=== PATIENT | male | born 1940 | race Caucasian/White ===

== ENCOUNTER 2016-09-05 06:10 | Emergency (ER) | payer MEDICARE ==
[~2016-09-05] VITALS: Ht 175.3 cm; Wt 76.5 kg
[~2016-09-05 06:10] MED LIST: ACET325T14 PO; AMLO5TAB2 PO; ATEN25TA PO; BACL-19; DOXY100T PO; FERR325T20 PO; FLUO20CA19 PO; FOLI-17 PO; IPRA4AER INH; OLAN10TA3 PO; OLAN20TA10 PO; OMEP-110 PO; OXYC1TAB PO; PANT40TA5 PO; PRED5TAB PO; TOPI100P PO; VITAMIN B1
[2016-09-05] MEDS ORDERED: FERR324T5 PO (06:38)
[2016-09-05] MEDS ORDERED: OMEP40CA6 PO (06:38)
[2016-09-05] MEDS ORDERED: TOPI100T94 PO (06:38)
[2016-09-05] MEDS ORDERED: FOLI-17 PO (06:38)
[2016-09-05] MEDS ORDERED: OLAN10TA9 PO (06:38)
[2016-09-05] MEDS ORDERED: TAMS0.4C2 PO (06:38)
[2016-09-05] MEDS ORDERED: NALT50TA PO (06:38)
[2016-09-05] MEDS ORDERED: FLUO40CA2 PO (06:38)
[2016-09-05] MEDS ORDERED: MAGN400T7 PO (06:38)
[2016-09-05] MEDS ORDERED: TIMO5DRO5 EACHEYE (06:38)
[2016-09-05] MEDS ORDERED: LIDOCAINE 1%, 20ML SQ ONE (07:00)
[2016-09-05] MEDS ORDERED: DIPHTHERIA-TETANUS ADULT 0.5ML IM-VACC ONE (07:00)
[2016-09-05] MEDS ORDERED: DIPH,PERTUSS(ACELL),TET VAC/PF 0.5 ML IM-VACC ONE ×2 (07:00→07:20)
[2016-09-05 07:07] LABS: BLOOD UREA NITROGEN 11 mg/dL (7-18)
[2016-09-05] MEDS ORDERED: LIDOCAINE 1%, 20ML ONE (07:24)
[2016-09-05 09:05] VITALS: BP 138/74
== END 2016-09-05 10:26 | disposition left against medical advice (07) ==
LOC: ED 08:32
DX: S01.81XA Laceration without foreign body of other part of head, initial encounter (principal); J44.9 Chronic obstructive pulmonary disease, unspecified; I10 Essential (primary) hypertension; F10.20 Alcohol dependence, uncomplicated; Z88.8 Allergy status to other drugs, medicaments and biological substances; W19.XXXA Unspecified fall, initial encounter; Y93.89 Activity, other specified; Y92.009 Unspecified place in unspecified non-institutional (private) residence as the place of occurrence of the external cause; Y99.9 Unspecified external cause status
CPT/HCPCS: 13131; 36415; 70450; 72125; 80048; 80307; 82040; 85025; 90471; 90715; 99285; J3490

== ENCOUNTER 2016-10-15 08:05 | Emergency (ER) | payer MEDICARE ==
[~2016-10-15] VITALS: Ht 175.3 cm; Wt 78.0 kg
[~2016-10-15 08:05] MED LIST changes: +FERR324T5 PO; +FLUO40CA2 PO; +MAGN400T7 PO; +NALT50TA PO; +OLAN10TA9 PO; +OMEP40CA6 PO; +TAMS0.4C2 PO; +TIMO5DRO5 EACHEYE; +TOPI100T94 PO
[2016-10-15 08:25] VITALS: BP 140/88
== END 2016-10-15 09:52 | disposition home or self-care (01) ==
LOC: ED 09:30
DX: F10.129 Alcohol abuse with intoxication, unspecified (principal); I10 Essential (primary) hypertension; J44.9 Chronic obstructive pulmonary disease, unspecified; G40.909 Epilepsy, unspecified, not intractable, without status epilepticus; K21.9 Gastro-esophageal reflux disease without esophagitis
CPT/HCPCS: 99283

== ENCOUNTER 2016-10-23 23:52 | Emergency (ER) | payer MEDICARE ==
[~2016-10-23] VITALS: Ht 172.7 cm; Wt 75.0 kg
[2016-10-24 05:49] VITALS: BP 105/69
== END 2016-10-24 05:52 | disposition home or self-care (01) ==
LOC: ED 23:59
DX: F10.120 Alcohol abuse with intoxication, uncomplicated (principal); I11.9 Hypertensive heart disease without heart failure; J44.9 Chronic obstructive pulmonary disease, unspecified; G40.909 Epilepsy, unspecified, not intractable, without status epilepticus; K21.9 Gastro-esophageal reflux disease without esophagitis
CPT/HCPCS: 99283

== ENCOUNTER 2016-11-27 03:49 | Emergency (ER) | payer MEDICARE ==
[~2016-11-27] VITALS: Ht 175.3 cm; Wt 73.0 kg
[2016-11-27 03:55] VITALS: BP 128/80
[2016-11-27 04:12] LABS: PATH.CAST-FLAG NOT PRESENT; SPERM-FLAG NOT PRESENT; SRC-FLAG NOT PRESENT; XTAL-FLAG NOT PRESENT; YLC-FLAG NOT PRESENT
== END 2016-11-27 05:00 | disposition home or self-care (01) ==
LOC: ED 04:30
DX: R30.0 Dysuria (principal); R39.15 Urgency of urination; J44.9 Chronic obstructive pulmonary disease, unspecified; I10 Essential (primary) hypertension
CPT/HCPCS: 81001; 99283

== ENCOUNTER 2016-12-07 09:11 | Inpatient (IN) | payer MEDICARE, OTHER ==
[~2016-12-07] VITALS: Ht 175.3 cm; Wt 72.1 kg
[2016-12-07 09:52] LABS: HEMATOCRIT 37.2 % (39.2-51.8); HEMOGLOBIN 12.3 g/dL (13.7-18.0); WHITE BLOOD COUNT 7.6 x10^3/uL (3.4-10)
[2016-12-07 09:59] LABS: BLOOD UREA NITROGEN 18 mg/dL (7-18)
[2016-12-07] MEDS ORDERED: ONDANSETRON 2MG/ML, 2ML IVPush ONE ×3 (12:30→15:00)
[2016-12-07] MEDS ORDERED: HYDROmorphone 1 MG/ML, 1ML IVPush PRN ×2 (12:30→14:30)
[2016-12-07] MEDS ORDERED: SODIUM CHLORIDE FLUSH 10ML SYR IVF ONE (12:30)
[2016-12-07] MEDS ORDERED: SODIUM CHLORIDE 0.9% 1,000 ML IV ONE (12:39)
[2016-12-07] MEDS ORDERED: SODIUM CHLORIDE FLUSH 10ML SYR IVF PRN (13:00)
[2016-12-07] MEDS ORDERED: SODIUM CHLORIDE 0.9% 1,000 ML IV SCH (13:37)
[2016-12-07] MEDS ORDERED: ONDANSETRON 2MG/ML, 2ML IVPush PRN (14:00)
[2016-12-07] MEDS ORDERED: LORazepam 2 MG/ML, 1ML IVPush PRN (14:00)
[2016-12-07] MEDS ORDERED: ACETAMINOPHEN 325 MG TABLET PO PRN (14:00)
[2016-12-07] MEDS ORDERED: hydrALAzine 20 MG/ML, 1ML IVPush PRN (14:00)
[2016-12-07] MEDS ORDERED: DOCUSATE 100 MG CAPSULE PO PRN (14:00)
[2016-12-07] MEDS ORDERED: POLYETHYLENE GLYCOL 17 GM PACKET PO PRN (14:00)
[2016-12-07] MEDS ORDERED: LORazepam 2 MG/ML, 1ML IV PRN ×3 (14:00)
[2016-12-07] MEDS ORDERED: HYDROmorphone 1 MG/ML, 1ML ONE ×2 (14:31→15:54)
[2016-12-07 14:34] LABS: ASPARTATE AMINO TRANSFERASE 22 U/L (15-37)
[2016-12-07 15:01] LABS: TOTAL IRON BINDING CAPACITY 216 mcg/dL (250-450)
[2016-12-07] MEDS: HYDROmorphone 1 MG/ML, 1ML IVPush PRN ×2 (15:11→16:07)
[2016-12-07] MEDS: HYDROcodone/APAP 5/325 TABLET PO PRN (16:45)
[2016-12-07] MEDS: LORazepam 2 MG/ML, 1ML IV PRN ×2 (16:46→19:26)
[2016-12-07 16:55] VITALS: BP 179/99
[2016-12-07 17:56] VITALS: BP 141/97
[2016-12-07 18:59] VITALS: BP 169/97
[2016-12-07] MEDS: TAMSULOSIN 0.4 MG CAP.ER.24H PO SCH (21:21)
[2016-12-07] MEDS: FERROUS SULFATE 325 MG TABLET PO SCH (21:21)
[2016-12-08 01:31] VITALS: BP 143/92
[2016-12-08] MEDS: MORPHINE SULFATE 4 MG/ML, 1ML IVPush PRN ×2 (01:57→10:38)
[2016-12-08 04:15] LABS: HEMOGLOBIN 12.5 g/dL (13.7-18.0); WHITE BLOOD COUNT 8.7 x10^3/uL (3.4-10)
[2016-12-08 04:29] LABS: BLOOD UREA NITROGEN 18 mg/dL (7-18)
[2016-12-08 04:33] LABS: ASPARTATE AMINO TRANSFERASE 19 U/L (15-37)
[2016-12-08 07:01] VITALS: BP 177/92
[2016-12-08] MEDS: OMEPRAZOLE 20 MG CAPSULE.DR PO SCH (07:30)
[2016-12-08] MEDS: FERROUS SULFATE 325 MG TABLET PO SCH ×2 (08:01→21:38)
[2016-12-08] MEDS: FOLIC ACID 1 MG TABLET PO SCH (08:01)
[2016-12-08] MEDS: MAGNESIUM OXIDE 400 MG TABLET PO SCH (08:01)
[2016-12-08] MEDS: TOPIRAMATE 100 MG TABLET PO SCH (08:02)
[2016-12-08] MEDS: FLUOXETINE 20 MG CAPSULE PO SCH (08:02)
[2016-12-08] MEDS: OLANZAPINE 10 MG TABLET PO SCH (08:02)
[2016-12-08] MEDS ORDERED: POTASSIUM CHLORIDE 20 MEQ, MAGNESIUM SULFATE 1 GM, THIAMINE 100 MG, FOLIC ACID 1 MG, MV... IV SCH (08:30)
[2016-12-08] MEDS ORDERED: POTASSIUM CHLORIDE 20 MEQ, MAGNESIUM SULFATE 1 GM, FOLIC ACID 1 MG, THIAMINE 100 MG, MV... IV ONE (09:00)
[2016-12-08] MEDS: TIMOLOL OPHTH 0.5%, 5ML EACHEYE SCH (10:38)
[2016-12-08] MEDS: LORazepam 2 MG/ML, 1ML IV PRN (11:01)
[2016-12-08 12:05] VITALS: BP 151/88
[2016-12-08] MEDS ORDERED: FENTANYL PF 100 MCG/2ML ONE (13:22)
[2016-12-08] MEDS ORDERED: MIDAZOLAM 1 MG/ML, 5ML ONE (13:22)
[2016-12-08] MEDS: HYDROcodone/APAP 5/325 TABLET PO PRN ×2 (17:43→21:38)
[2016-12-08 19:40] VITALS: BP 104/67
[2016-12-08] MEDS: TAMSULOSIN 0.4 MG CAP.ER.24H PO SCH (21:37)
[2016-12-09 02:26] VITALS: BP 119/71
[2016-12-09] MEDS: HYDROcodone/APAP 5/325 TABLET PO PRN ×2 (04:08→13:30)
[2016-12-09 05:20] LABS: HEMATOCRIT 37.1 % (39.2-51.8); HEMOGLOBIN 12.3 g/dL (13.7-18.0); WHITE BLOOD COUNT 9.9 x10^3/uL (3.4-10)
[2016-12-09 05:41] LABS: ASPARTATE AMINO TRANSFERASE 16 U/L (15-37); BLOOD UREA NITROGEN 17 mg/dL (7-18)
[2016-12-09] MEDS: OMEPRAZOLE 20 MG CAPSULE.DR PO SCH (07:30)
[2016-12-09 07:48] VITALS: BP 153/86
[2016-12-09] MEDS: FOLIC ACID 1 MG TABLET PO SCH (09:00)
[2016-12-09] MEDS: FERROUS SULFATE 325 MG TABLET PO SCH ×2 (09:00→21:54)
[2016-12-09] MEDS: MAGNESIUM OXIDE 400 MG TABLET PO SCH (09:00)
[2016-12-09] MEDS ORDERED: MIDAZOLAM 1 MG/ML, 5ML ONE ×2 (10:41)
[2016-12-09] MEDS ORDERED: FENTANYL PF 100 MCG/2ML ONE (10:41)
[2016-12-09] MEDS ORDERED: NALOXONE 1 MG/ML, 2ML ONE (10:42)
[2016-12-09] MEDS ORDERED: FLUMAZENIL 0.1 MG/1 ML, 5ML ONE (10:42)
[2016-12-09] MEDS: TIMOLOL OPHTH 0.5%, 5ML EACHEYE SCH (13:27)
[2016-12-09] MEDS: POTASSIUM CHLORIDE 20 MEQ, MAGNESIUM SULFATE 1 GM, FOLIC ACID 1 MG, THIAMINE 100 MG, MV... IV SCH (13:27)
[2016-12-09] MEDS: TOPIRAMATE 100 MG TABLET PO SCH (13:27)
[2016-12-09] MEDS: FLUOXETINE 20 MG CAPSULE PO SCH (13:27)
[2016-12-09] MEDS: POTASSIUM CHLORIDE 20 MEQ TAB.ER.PRT PO SCH ×2 (13:27→18:15)
[2016-12-09] MEDS: OLANZAPINE 10 MG TABLET PO SCH (13:28)
[2016-12-09 15:27] VITALS: BP 129/81
[2016-12-09] MEDS: MORPHINE SULFATE 4 MG/ML, 1ML IVPush PRN ×2 (18:15→21:54)
[2016-12-09 19:46] VITALS: BP 102/64
[2016-12-09] MEDS: TAMSULOSIN 0.4 MG CAP.ER.24H PO SCH (21:54)
[2016-12-10 01:54] VITALS: BP 120/75
[2016-12-10] MEDS: HYDROcodone/APAP 5/325 TABLET PO PRN ×4 (04:20→22:15)
[2016-12-10 05:16] LABS: HEMATOCRIT 36.6 % (39.2-51.8); HEMOGLOBIN 12.2 g/dL (13.7-18.0); WHITE BLOOD COUNT 9.8 x10^3/uL (3.4-10)
[2016-12-10 05:36] LABS: ASPARTATE AMINO TRANSFERASE 20 U/L (15-37); BLOOD UREA NITROGEN 17 mg/dL (7-18)
[2016-12-10] MEDS: OMEPRAZOLE 20 MG CAPSULE.DR PO SCH (07:51)
[2016-12-10] MEDS: POTASSIUM CHLORIDE 20 MEQ TAB.ER.PRT PO SCH (07:51)
[2016-12-10 08:00] VITALS: BP 131/82
[2016-12-10] MEDS: TIMOLOL OPHTH 0.5%, 5ML EACHEYE SCH (09:39)
[2016-12-10] MEDS: FERROUS SULFATE 325 MG TABLET PO SCH ×2 (09:39→20:16)
[2016-12-10] MEDS: FLUOXETINE 20 MG CAPSULE PO SCH (09:40)
[2016-12-10] MEDS: FOLIC ACID 1 MG TABLET PO SCH (09:40)
[2016-12-10] MEDS: MAGNESIUM OXIDE 400 MG TABLET PO SCH (09:40)
[2016-12-10] MEDS: TOPIRAMATE 100 MG TABLET PO SCH (09:40)
[2016-12-10] MEDS: OLANZAPINE 10 MG TABLET PO SCH (09:41)
[2016-12-10] MEDS: POTASSIUM CHLORIDE 20 MEQ, MAGNESIUM SULFATE 1 GM, FOLIC ACID 1 MG, THIAMINE 100 MG, MV... IV SCH (10:15)
[2016-12-10 14:00] VITALS: BP 105/58
[2016-12-10] MEDS ORDERED: ENOXAPARIN 30 MG/0.3 ML SQ SCH (14:00)
[2016-12-10] MEDS ORDERED: HYDROcodone/APAP 5/325 TABLET PO PRN (18:00)
[2016-12-10 19:17] VITALS: BP 106/67
[2016-12-10] MEDS: TAMSULOSIN 0.4 MG CAP.ER.24H PO SCH (20:16)
[2016-12-11 01:47] VITALS: BP 117/75
[2016-12-11] MEDS: HYDROcodone/APAP 5/325 TABLET PO PRN ×3 (02:04→20:22)
[2016-12-11 08:15] VITALS: BP 148/94
[2016-12-11] MEDS: POTASSIUM CHLORIDE 20 MEQ, MAGNESIUM SULFATE 1 GM, FOLIC ACID 1 MG, THIAMINE 100 MG, MV... IV SCH (09:00)
[2016-12-11] MEDS: FLUOXETINE 20 MG CAPSULE PO SCH (10:21)
[2016-12-11] MEDS: FERROUS SULFATE 325 MG TABLET PO SCH ×2 (10:21→20:22)
[2016-12-11] MEDS: FOLIC ACID 1 MG TABLET PO SCH (10:21)
[2016-12-11] MEDS: TIMOLOL OPHTH 0.5%, 5ML EACHEYE SCH (10:21)
[2016-12-11] MEDS: OMEPRAZOLE 20 MG CAPSULE.DR PO SCH (10:21)
[2016-12-11] MEDS: MAGNESIUM OXIDE 400 MG TABLET PO SCH (10:22)
[2016-12-11] MEDS: TOPIRAMATE 100 MG TABLET PO SCH (10:22)
[2016-12-11] MEDS: OLANZAPINE 10 MG TABLET PO SCH (13:07)
[2016-12-11 13:41] VITALS: BP 120/76
[2016-12-11] MEDS ORDERED: ENOXAPARIN 40 MG/0.4 ML SQ SCH (14:00)
[2016-12-11 19:54] VITALS: BP 113/69
[2016-12-11] MEDS: TAMSULOSIN 0.4 MG CAP.ER.24H PO SCH (20:22)
[2016-12-12 00:52] VITALS: BP 129/76
[2016-12-12] MEDS: HYDROcodone/APAP 5/325 TABLET PO PRN ×3 (01:59→21:33)
[2016-12-12 07:44] VITALS: BP 143/87
[2016-12-12] MEDS: OMEPRAZOLE 20 MG CAPSULE.DR PO SCH (07:51)
[2016-12-12] MEDS: OLANZAPINE 10 MG TABLET PO SCH (09:01)
[2016-12-12] MEDS: FERROUS SULFATE 325 MG TABLET PO SCH ×2 (09:01→21:34)
[2016-12-12] MEDS: FLUOXETINE 20 MG CAPSULE PO SCH (09:01)
[2016-12-12] MEDS: FOLIC ACID 1 MG TABLET PO SCH (09:01)
[2016-12-12] MEDS: MAGNESIUM OXIDE 400 MG TABLET PO SCH (09:01)
[2016-12-12] MEDS: TOPIRAMATE 100 MG TABLET PO SCH (09:01)
[2016-12-12] MEDS: TIMOLOL OPHTH 0.5%, 5ML EACHEYE SCH (09:02)
[2016-12-12 14:15] VITALS: BP 110/65
[2016-12-12] MEDS: ENOXAPARIN 40 MG/0.4 ML SQ SCH (15:47)
[2016-12-12 19:45] VITALS: BP 120/71
[2016-12-12] MEDS ORDERED: BICALUTAMIDE 50 MG TABLET PO SCH (21:00)
[2016-12-12] MEDS: TAMSULOSIN 0.4 MG CAP.ER.24H PO SCH (21:34)
[2016-12-13 01:23] VITALS: BP 136/86
[2016-12-13] MEDS: HYDROcodone/APAP 5/325 TABLET PO PRN (05:48)
[2016-12-13 07:40] VITALS: BP 148/77
[2016-12-13] MEDS: OMEPRAZOLE 20 MG CAPSULE.DR PO SCH (08:22)
[2016-12-13] MEDS ORDERED: BICALUTAMIDE 50 MG TABLET PO SCH (09:00)
[2016-12-13] MEDS: FLUOXETINE 20 MG CAPSULE PO SCH (09:05)
[2016-12-13] MEDS: TOPIRAMATE 100 MG TABLET PO SCH (09:05)
[2016-12-13] MEDS: FOLIC ACID 1 MG TABLET PO SCH (09:05)
[2016-12-13] MEDS: MAGNESIUM OXIDE 400 MG TABLET PO SCH (09:05)
[2016-12-13] MEDS: FERROUS SULFATE 325 MG TABLET PO SCH (09:06)
[2016-12-13] MEDS: OLANZAPINE 10 MG TABLET PO SCH (09:06)
[2016-12-13] MEDS: TIMOLOL OPHTH 0.5%, 5ML EACHEYE SCH (09:07)
[2016-12-13] MEDS ORDERED: HYDR-3240 PO (11:41)
[2016-12-13] MEDS ORDERED: BICA50TA PO (11:41)
[2016-12-13 13:05] VITALS: BP 129/74
[2016-12-13] MEDS: ENOXAPARIN 40 MG/0.4 ML SQ SCH (14:09)
== END 2016-12-13 18:00 | DRG 823 ==
LOC: ED 10:09 → EDIP 12:39 → 3NW 13:15 → 3NE 12-11 07:03 → 3NW 12-11 07:03
PROVIDERS: ADMIT Internal Medicine; ATTEND Internal Medicine
PROC: 0T7D8ZZ Dilation of Urethra, Via Natural or Artificial Opening Endoscopic (ICD-10-PCS; 2016-12-07)
PROC: 0T9B80Z Drainage of Bladder with Drainage Device, Via Natural or Artificial Opening Endoscopic (ICD-10-PCS; 2016-12-07)
PROC: 0DJ08ZZ Inspection of Upper Intestinal Tract, Via Natural or Artificial Opening Endoscopic (ICD-10-PCS; 2016-12-08)
PROC: 07BD3ZX Excision of Aortic Lymphatic, Percutaneous Approach, Diagnostic (ICD-10-PCS; principal; 2016-12-09)
DX: C77.2 Secondary and unspecified malignant neoplasm of intra-abdominal lymph nodes (principal); N17.0 Acute kidney failure with tubular necrosis; E44.0 Moderate protein-calorie malnutrition; C77.5 Secondary and unspecified malignant neoplasm of intrapelvic lymph nodes; C79.51 Secondary malignant neoplasm of bone; N13.30 Unspecified hydronephrosis; I13.10 Hypertensive heart and chronic kidney disease without heart failure, with stage 1 through stage 4 chronic kidney disease, or unspecified chronic kidney disease; F31.30 Bipolar disorder, current episode depressed, mild or moderate severity, unspecified; C61 Malignant neoplasm of prostate; R13.10 Dysphagia, unspecified; J44.9 Chronic obstructive pulmonary disease, unspecified; F20.9 Schizophrenia, unspecified; N32.0 Bladder-neck obstruction; D50.9 Iron deficiency anemia, unspecified; Z68.23 Body mass index [BMI] 23.0-23.9, adult; D63.8 Anemia in other chronic diseases classified elsewhere; E87.6 Hypokalemia; F10.10 Alcohol abuse, uncomplicated; G40.909 Epilepsy, unspecified, not intractable, without status epilepticus; K21.9 Gastro-esophageal reflux disease without esophagitis; K59.00 Constipation, unspecified; N18.9 Chronic kidney disease, unspecified; N40.0 Benign prostatic hyperplasia without lower urinary tract symptoms; Z96.642 Presence of left artificial hip joint; K44.9 Diaphragmatic hernia without obstruction or gangrene; Z66 Do not resuscitate; Z80.1 Family history of malignant neoplasm of trachea, bronchus and lung; Z82.49 Family history of ischemic heart disease and other diseases of the circulatory system; Z87.440 Personal history of urinary (tract) infections; Z87.891 Personal history of nicotine dependence; Z90.79 Acquired absence of other genital organ(s); Z88.8 Allergy status to other drugs, medicaments and biological substances; Z88.5 Allergy status to narcotic agent; K22.70 Barrett's esophagus without dysplasia
CPT/HCPCS: 36415; 49180; 71250; 74022; 74176; 76770; 77012; 78306; 80048; 80053; 80076; 81003; 82040; 82607; 82746; 83540; 83550; 83735; 84100; 84153; 84443; 85025; 85610; 87324; 88305; 88313; 88341; 88342; 96361; 96374; 96375; 99152; 99153; 99156; 99157; J1170; J1650; J2250; J3010; J3411; J3475; J3480; A9503; C9898; G0461; J0360; J2060; J2310; J7030; J7121

== ENCOUNTER 2017-01-09 17:09 | Emergency (ER) | payer MEDICARE, OTHER ==
[~2017-01-09] VITALS: Ht 175.3 cm; Wt 68.5 kg
[~2017-01-09 17:09] MED LIST changes: +BICA50TA PO; +FERR325T18 PO; -FERR325T20 PO; +HYDR-3240 PO; +TOPI100T8 PO; -TOPI100T94 PO
[2017-01-09 19:42] VITALS: BP 158/90
== END 2017-01-09 19:44 | disposition home or self-care (01) ==
LOC: ED 18:25
DX: Z46.6 Encounter for fitting and adjustment of urinary device (principal); I11.9 Hypertensive heart disease without heart failure; J44.9 Chronic obstructive pulmonary disease, unspecified; F10.20 Alcohol dependence, uncomplicated; Z85.46 Personal history of malignant neoplasm of prostate; Z88.8 Allergy status to other drugs, medicaments and biological substances; Z87.891 Personal history of nicotine dependence
CPT/HCPCS: 51702; 99284

== ENCOUNTER 2017-01-18 09:22 | Emergency (ER) | payer MEDICARE ==
[~2017-01-18] VITALS: Ht 175.3 cm; Wt 75.0 kg
[2017-01-18 09:59] LABS: HEMATOCRIT 33.6 % (39.2-51.8); HEMOGLOBIN 11.4 g/dL (13.7-18.0); WHITE BLOOD COUNT 7.4 x10^3/uL (3.4-10)
[2017-01-18 10:11] LABS: BLOOD UREA NITROGEN 7 mg/dL (7-18)
[2017-01-18] MEDS ORDERED: OMNIPAQUE 350 MG/ML, 100ML BOTTLE ONE (11:09)
[2017-01-18] MEDS ORDERED: NALT50TA PO (11:48)
[2017-01-18] MEDS ORDERED: MAGN400T22 PO (11:48)
[2017-01-18 15:24] VITALS: BP 155/77
== END 2017-01-18 15:26 | disposition home or self-care (01) ==
LOC: ED 12:40
DX: N30.00 Acute cystitis without hematuria (principal); R33.9 Retention of urine, unspecified; J44.9 Chronic obstructive pulmonary disease, unspecified; I11.9 Hypertensive heart disease without heart failure; F10.20 Alcohol dependence, uncomplicated
CPT/HCPCS: 36415; 51702; 74177; 80048; 81001; 82040; 85025; 87077; 87086; 87186; 99285; Q9967